=== PATIENT | female | born 1970 | race African-American/Black ===

== ENCOUNTER 2017-07-17 17:24 | Emergency (ER) | payer SELFPAY ==
[~2017-07-17] VITALS: Ht 157.5 cm; Wt 102.8 kg
[2017-07-17 22:45] VITALS: BP 127/88
[2017-07-17 22:54] LABS: CLARITY URINE CLEAR (CLEAR); COLOR URINE DARK YELLOW (YELLOW); KETONES URINE TRACE (NEGATIVE); LEUKOCYTE ESTERASE URINE NEGATIVE (NEGATIVE); NITRITE URINE NEGATIVE (NEGATIVE); OCCULT BLOOD URINE NEGATIVE (NEGATIVE); PH URINE 6.5 (4.5-8.0); PROTEIN URINE NEGATIVE (NEGATIVE); SPECIFIC GRAVITY URINE 1.034 (1.005-1.030)
== END 2017-07-17 22:34 | disposition left against medical advice (07) ==
LOC: ER 17:24
DX: M79.604 Pain in right leg (principal); Z88.0 Allergy status to penicillin
CPT/HCPCS: 81003; 81025; 99283